=== PATIENT | female | born 1990 | race Caucasian/White ===

== ENCOUNTER 2016-10-29 08:38 | Day surgery (SDC) | payer OTHER ==
[2016-10-29] MEDS ORDERED: OXYMETAZOLINE HCL 0.05% NASAL SPRAY 15 ML BOTTLE ONE (08:51)
[2016-10-29] MEDS ORDERED: LIDOCAINE 2%/EPINEPHRINE INJ 20 ML VIAL ONE (08:51)
[2016-10-29] MEDS ORDERED: MIDAZOLAM 2 MG/2 ML INJ ONE (08:52)
[2016-10-29] MEDS ORDERED: ONDANSETRON HCL INJ/PF 4 MG/2 ML SDV ONE (08:53)
[2016-10-29] MEDS ORDERED: SUCCINYLCHOLINE CHLORIDE INJ 200 MG/10 ML VIAL ONE (08:53)
[2016-10-29] MEDS ORDERED: DEXAMETHASONE SOD PHOS INJ 10 MG/1 ML VIAL ONE (08:53)
[2016-10-29] MEDS ORDERED: HYDROMORPHONE HCL INJ/PF 2 MG/ML AMPULE ONE (08:53)
[2016-10-29] MEDS ORDERED: PROPOFOL INJ 200 MG/20 ML VIAL IV ONE (08:53)
[2016-10-29] MEDS ORDERED: HYDROCODONE/ACETAMINOPHEN 5-325 MG TABLET ONE (10:54)
--- NOTE | 2016-10-29 13:48 | OPERATIVE REPORT E ---
Operative Report NAME: ALECIA MEADE : 1990 AGE: 26Y DATE OF SURGERY: 10/29/2016 ROOM: INDICATIONS FOR THE PROCEDURE: This is a 26-year-old female with a history of nasal obstruction and deviated septum. Please see her outpatient medical records for complete details regarding her medical history and examination. PREOPERATIVE DIAGNOSES: 1. DEVIATED NASAL SEPTUM. 2. NASAL OBSTRUCTION BILATERAL. 3. INFERIOR TURBINATE HYPERTROPHY BILATERAL. POSTOPERATIVE DIAGNOSES: 1. DEVIATED NASAL SEPTUM. 2. NASAL OBSTRUCTION BILATERAL. 3. INFERIOR TURBINATE HYPERTROPHY BILATERAL. OPERATION: 1. Septoplasty. 2. Fracture of inferior nasal turbinates. 3. Submucosal resection of turbinates. SURGEON: KATHY CANADA M.D. FINDINGS: 1. Deviated nasal septum. 2. Inferior turbinate hypertrophy. ESTIMATED BLOOD LOSS: 15 mL. DESCRIPTION OF OPERATION: After properly identifying the patient, obtaining informed consent and verifying the surgical site, the patient was brought to the operating room, placed in the supine position after which time general endotracheal anesthesia was obtained in a standard fashion. Surgical time-out was then performed. The nose was prepped in the usual fashion with topical Afrin on cotton pledgets as well as direct infiltration of the nasal septum and inferior turbinates with 2% lidocaine with 1:100,000 epinephrine. The patient was then draped in the usual manner for nasal surgery. A hemitransfixion incision was then sharply made on the left-hand side and mucoperichondrial and periosteal flaps were then raised. The bony cartilaginous junction of the septum was identified and disarticulated and a contralateral mucoperichondrial flap was then elevated without fenestration. Next, a D-knife was then used to make an incision along the caudal and dorsal sides of the deviated portion of the cartilaginous septum and it was then removed. Next, deviated portion of the perpendicular plate of the ethmoid and vomer were resected. Careful attention was given to maintain 1 cm dorsal and caudal struts. Any additional deviated portions of the maxillary crest were taken down with a *------* mallet. The flaps were then redraped. The nasal cavity was much more patent. The hemitransfixion incision was then reapproximated with a 4-0 chromic suture. A whipstitch of *------* was then placed [id number] across the flaps in order to reapproximate them. Next, the inferior turbinates, first right, then left were addressed with submucosal resection of the abundant mucosa using a microdebrider. This was followed by bilateral inferior turbinate outfracture in an anterior to posterior direction. Next, bacitracin-soaked splints were then fixed anteriorly using a 2-0 Prolene suture in an interrupted fashion. At this point in time, the case was concluded. The patient was returned to anesthesia. She was awakened in the operating room and taken to the PACU in stable condition having tolerated the procedure well. DICTATING PHYSICIAN: KATHY CANADA M.D. [id number] PHY#: [id number] ID: [id number] JOB#: [id number] ACCT: [id number] cc:KATHY CANADA M.D. >
== END 2016-10-29 12:29 | disposition home or self-care (01) ==
LOC: SC 08:38
PROVIDERS: ATTEND Otolaryngology
PROC: 09TL8ZZ Resection of Nasal Turbinate, Via Natural or Artificial Opening Endoscopic (ICD-10-PCS; 2016-10-29)
PROC: 09BM4ZZ Excision of Nasal Septum, Percutaneous Endoscopic Approach (ICD-10-PCS; principal; 2016-10-29 09:45)
DX: J34.2 Deviated nasal septum (principal); J34.3 Hypertrophy of nasal turbinates; J34.89 Other specified disorders of nose and nasal sinuses
CPT/HCPCS: 30140; 30520; J2250; J3490 ×2; J1170; J0330; J2405; J2704; J1100; 160